=== PATIENT | male | born 1965 | race Hispanic/Latino ===

== ENCOUNTER 2019-10-20 19:17 | Observation (INO) | payer OTHER ==
[2019-10-20] MEDS ORDERED: ALPRAZOLAM 0.25 MG TABLET PO PRN (20:14)
[2019-10-20] MEDS ORDERED: MORPHINE 4 MG/ML SYR IV PRN (20:14)
[2019-10-20] MEDS ORDERED: ACETAMINOPHEN 500 MG TAB PO PRN (20:14)
[2019-10-20 20:26] VITALS: BMI 28.8
[2019-10-20] MEDS ORDERED: METOPROLOL TAR 50 MG TAB PO SCH (21:00)
[2019-10-21 00:29] VITALS: O2SAT 100
[2019-10-21 04:22] LABS: Troponin I 0.05 ng/mL (0.0-0.045)
--- NOTE | 2019-10-21 06:57 | P.HP ---
Certification for Inpatient Patient admitted to: Observation With expected LOS: <2 Midnights Patient will require the following post-hospital care: None Practitioner: I am a practitioner with admitting privileges, knowledge of patient current condition, hospital course, and medical plan of care. Services: Services provided to patient in accordance with Admission requirements found in Title 42 Section 412.3 of the Code of Federal Regulations Patient History Date of Service: 10/20/19 Reason for admission: Chest pain rule out acute coronary syndrome History of Present Illness: Patient is a 54-year-old gentleman who was well known to me from outside the hospital who presents with chest discomfort. Patient has been having some chest discomfort since this morning. He came to the ER for further evaluation. He has had some shortness of breath and dyspnea as well. He says this may be attributed to him doing some physical activity this morning. He had been doing some different type of exercises were incorporated pushups and other things which may have resulted and the chest discomfort. He went to [place] emergency room for further evaluation. Patient be admitted to the hospital for further evaluation. Will get Cardiology consultation and if his troponins and EKG look unremarkable and will try to get a stress test in the morning. Allergies No Known Allergies Allergy (Unverified 05/18/13 16:49) Home Medications: Atorvastatin Calcium 10 mg PO DAILY 10/20/19 - Past Medical/Surgical History Has patient received pneumonia vaccine in the past: Yes Diabetic: No -: Hyperlipidemia -: Left knee surgery - Family History Father Family History: Reviewed- Non-Contributory - Social History Smoking Status: Never smoker Alcohol use: No CD- Drugs: No Caffeine use: Yes Place of Residence: Home Review of Systems 10-point ROS is otherwise unremarkable Physical Examination - Vital Signs Temperature: 97.0 F Blood Pressure: 100/52 Pulse: 45 Respirations: 18 Pulse Ox (%): 100 - Physical Exam General: Alert, In no apparent distress, Oriented x3 HEENT: Atraumatic, PERRLA, Mucous membr. moist/pink, EOMI, Sclerae nonicteric Neck: Supple, 2+ carotid pulse no bruit, No LAD, Without JVD or thyroid abnormality Respiratory: Clear to auscultation bilaterally, Normal air movement Cardiovascular: Regular rate/rhythm, Normal S1 S2, No murmurs Gastrointestinal: Normal bowel sounds, Soft and benign, Non-distended, No tenderness Musculoskeletal: No clubbing, No swelling, No tenderness Integumentary: No rashes Neurological: Normal gait, Normal speech, Normal strength at 5/5 x4 extr, Normal tone, Sensation intact, Cranial nerves 3-12 intact, Normal affect Lymphatics: No axilla or inguinal lymphadenopathy - Studies Laboratory Data (last 24 hrs) 10/21/19 06:00: Triglycerides Cancelled, Cholesterol Cancelled, HDL Cholesterol Cancelled, Cholesterol/HDL Ratio Cancelled 10/21/19 03:33: Troponin I 0.05 H, Triglycerides 282 H, Cholesterol 195, HDL Cholesterol 47, Cholesterol/HDL Ratio 4.15 10/20/19 22:53: Troponin I 0.04 Assessment & Plan - Problems (Diagnosis) (1) Chest pain, rule out acute myocardial infarction Current Visit: Yes Status: Acute (2) Dyslipidemia Current Visit: Yes Status: Acute - Plan 1. Serial troponins and EKG 2. Cardiology consultation 3. Echocardiogram and stress test in the morning 4. Anti-platelet therapy, anti coagulation, beta-adalgisa, statin, and O2 as needed 5. IV morphine for pain 6. Nitro p.r.n. Discharge Plan: Home Plan to discharge in: 48 Hours - Advance Directives Does patient have a Living Will: No Does patient have a Durable POA for Healthcare: No - Code Status/Comfort Care Code Status Assessed: Yes Code Status: Full Code Critical Care: No Time Spent Managing PTS Care (In Minutes): 45
[2019-10-21] MEDS ORDERED: ENOXAPARIN 40 MG/0.4 ML SQ SCH (09:00)
[2019-10-21] MEDS ORDERED: ATORVASTATIN 10 MG TAB PO SCH (09:00)
[2019-10-21] MEDS ORDERED: ASPIRIN EC 81 MG TAB PO SCH (09:00)
[2019-10-21 09:25] VITALS: BP 99/55; TEMP 97.1
--- NOTE | 2019-10-21 11:31 | P.DS ---
Admission Date: 10/20/19 Discharge Date: 10/21/19 Primary Care Provider: Dr. Veloz Disposition: ROUTINE DISCHARGE Discharge Condition: GOOD Reason for Admission: Chest pain rule out acute coronary syndrome Consultations: Cardiology-Dr. Leslie Procedures: ECHO: Unremarkable. Exercise Stress test: Unremarkable. No stress-induced ischemia noted. Medical Problem list: Chest chest pain, normal exercise stress test Hyperlipidemia Suspect GERD Brief History of Present Illness: 54-year-old male with history of hyperlipidemia. Patient presented to [facility] due to chest pain. Patient was transferred to the hospital to complete cardiac workup. Hospital Course: Patient presented with chest pain. Patient originally seen at [facility]. Patient was transferred to the hospital to complete cardiac workup. Patient was seen and evaluated by Cardiology. Echocardiogram and exercise stress test performed. Both unremarkable as per Cardiology. No further workup needed at this time. Patient stable. Patient may continue with aspirin 81 mg daily. Recommend follow up with cardiology in 1-2 weeks if symptoms persist. Patient may have underlying reflux. Will recommend to start Protonix 40 mg daily. Patient may benefit with GI evaluation as an outpatient to further evaluate. Recommend follow up with his PCP in 1 week to follow up this hospitalization. Patient with hyperlipidemia. Patient takes a statin medication. Triglycerides slightly elevated. At discharge patient will continue with Lipitor 10 mg daily. Will recommend to add fish oil 1 g twice daily. Recommend to recheck fasting lipid panel in 4-6 weeks to monitor his progress. Vital Signs/Physical Exam: Temp Pulse Resp BP Pulse Ox 97.1 F 53 15 99/55 L 100 10/21/19 08:00 10/21/19 08:00 10/21/19 08:00 10/21/19 08:00 10/21/19 08:00 General: Alert, In no apparent distress, Oriented x3, Cooperative HEENT: Atraumatic Neck: Supple Respiratory: Clear to auscultation bilaterally, Normal air movement Cardiovascular: Normal pulses, Regular rate/rhythm Gastrointestinal: Normal bowel sounds, Soft and benign, Non-distended, No tenderness, No masses, No rebound, No guarding Musculoskeletal: No erythema, No tenderness, No warmth Integumentary: No tenderness/swelling, No erythema, No warmth, No cyanosis Neurological: Normal speech, Normal strength at 5/5 x4 extr, Normal tone, Normal affect Laboratory Data at Discharge: Troponin I 0.05 ng/mL (0.0-0.045) H 10/21/19 03:33 Triglycerides Cancelled 10/21/19 06:00 Cholesterol Cancelled 10/21/19 06:00 HDL Cholesterol Cancelled 10/21/19 06:00 Cholesterol/HDL Ratio Cancelled 10/21/19 06:00 Home Medications: Atorvastatin Calcium 10 mg PO DAILY 10/20/19 Docosahexanoic AC/Epa [Fish Oil 1,000 MG CAP] 1 cap PO BID #60 cap 10/21/19 Pantoprazole [Protonix Tab] 40 mg PO DAILY #30 tab 10/21/19 New Medications: Docosahexanoic AC/Epa [Fish Oil 1,000 MG CAP] 1 cap PO BID #60 cap Pantoprazole [Protonix Tab] 40 mg PO DAILY #30 tab Patient Discharge Instructions: 1. Recommend follow up with PCP in 1 week to follow up this hospitalization. 2. Patient presented with chest pain. Patient originally seen at [facility]. Patient was transferred to the hospital to complete cardiac workup. Patient was seen and evaluated by Cardiology. Echocardiogram and exercise stress test performed. Both unremarkable as per Cardiology. No further workup needed at this time. Patient stable. Patient may continue with aspirin 81 mg daily. Recommend follow up with cardiology in 1-2 weeks if symptoms persist. Patient may have underlying reflux. Will recommend to start Protonix 40 mg daily. Patient may benefit with GI evaluation as an outpatient to further evaluate. Recommend follow up with his PCP in 1 week to follow up this hospitalization. 3. Patient with hyperlipidemia. Patient takes a statin medication. Triglycerides slightly elevated. At discharge patient will continue with Lipitor 10 mg daily. Will recommend to add fish oil 1 g twice daily. Recommend to recheck fasting lipid panel in 4-6 weeks to monitor his progress. Diet: AHA Activity: Fall precautions Time spent managing pt's care (in minutes): 55
--- NOTE | 2019-10-21 12:21 | TREADMILL ---
70% H.R.: 117 85% H.R.: 142 90% H.R.: 150 100% H.R.: 167 DX: CHEST PAIN Date of Study: 10/21/2019 Ht: 5' 7 " Wt: 184 lb 6.4 oz Consulting Physician: SUYAPA MEDICATIONS: TYLENOL, XANAX, LIPITOR, ASPIRIN, LOVENOX HISTORY: 54 YEAR OLD MALE WITH HISTORY OF HIGH CHOLESTEROL AND ATYPICAL CHEST PAIN. PHYSICIAL EXAMINATION: RESTING B.P.: 111/77 RESTING H.R.: 64 RESTING EKG: NORMAL PROTOCOL: NEY ROUTINE EXERCISE TIME: 7:26 MAXIMUM HEART RATE: 150 87 % OF PREDICTED B.P. AT PEAK STRESS: 153/86 H.R. AT 1 MINUTE POST EXERCISE: 141 IMPRESSION: NEGATIVE EXERCISE TOLERANCE TEST. NORMAL BLOOD PRESSURE REPORTED. NO ARRHYTHMIAS. NO CHEST PAIN.
--- NOTE | 2019-10-21 18:05 | CON ---
Date of Consultation: 10/21/[address] Ewing's service on 10/20/2019. I saw the patient on 10/21/2019. Reason For Consultation: Chest pain. History Of Present Illness: Mr. Meraz is a 54-year-old [place] male without any significant past cardiac history. He does have a history of dyslipidemia, for which he takes Lipitor. He appare ntly was helping his son drive yesterday when he developed a right-sided chest pain that was increasi ng with inspiration consistent more with pleurisy. Denied any nausea, vomiting, diaphoresis, PND, or thopnea, pedal edema, palpitations, or syncope. Denied any fever or chills or cough. By the time I saw him, he has already had an echocardiogram, which was perfectly normal. A stress test, which was done was also normal. Past Medical History: As stated above. Allergies: NONE. Review of Systems: Negative. Social History: Negative. Family History: Positive for heart disease. Physical Examination: Vital Signs: Stable. He was afebrile. Chest: Clear. Cardiac: Reveals regular rhythm and rate. No murmurs, gallops, or rubs. Abdomen: Benign. Extremities: Revealed no clubbing, cyanosis, or edema. Diagnostic Data: Showed a troponin of 0.05 x2. The rest of it was normal. EKG was normal. Chest x -ray was normal. Impression And Plan: Chest pain consistent with pleurisy. Negative stress test, negative echocardio gram. Troponin is not consistent with acute coronary syndrome. The patient does have risk factors f or heart disease including family history and dyslipidemia. He is to continue Lipitor. I suggested a baby aspirin and he can take nonsteroidal anti-inflammatory agent for his pleurisy. If his symptom s persist, he will come to see me in the office as an outpatient, but for now, he can go home. Case was discussed with Dr. De La Rosa. GAELN/MUKUND Voice ID: [id number] Report ID: [id number]
--- NOTE | 2019-10-22 08:37 | ECHO ---
HEIGHT: 5 ft 7 in WEIGHT: 184 lb 6.4 oz DATE OF STUDY: 10/21/[address]: Tootie Ewing MD 2-DIMENSIONAL: YES M.MODE: YES DOPPLER: YES COLOR FLOW: YES TDS: NO PORTABLE: NO DEFINITY: NO BUBBLE STUDY: NO DIAGNOSIS: CHEST PAIN, RULE OUT ACUTE CORONARY SYNDROME CARDIAC HISTORY: CATHERIZATION: NO SURGERY: NO PROSTHETIC VALVE: NO PACEMAKER: NO MEASUREMENTS (cm) DIASTOLIC (NORMALS) SYSTOLIC (NORMALS) IVSd 1.0 (0.6-1.2) LA Diam 3.2 (1.9-4.0) LVEF 40% LVIDd 3.4 (3.5-5.7) LVIDs 2.8 (2.0-3.5) %FS 19% LVPWd 1.1 (0.6-1.2) Ao Diam 3.2 (2.0-3.7) 2 DIMENSIONAL ASSESSMENT: RIGHT ATRIUM: NORMAL LEFT ATRIUM: NORMAL RIGHT VENTRICLE: NORMAL LEFT VENTRICLE: NORMAL TRICUSPID VALVE: NORMAL MITRAL VALVE: NORMAL PULMONIC VALVE: NORMAL AORTIC VALVE: NORMAL PERICARDIAL EFFUSION: NONE AORTIC ROOT: NORMAL LEFT VENTRICULAR WALL MOTION: NORMAL. DOPPLER/COLOR FLOW: NORMAL. COMMENTS: NORMAL 2D ECHO WITH DOPPLER. NO WALL MOTION ABNORMALITY. NO EFFUSION. TECHNOLOGIST: LOREN PATEL
== END 2019-10-21 12:10 | disposition home or self-care (01) ==
LOC: 2ND 19:17
PROVIDERS: ADMIT Family Medicine; ATTEND Hospitalist
DX: R07.9 Chest pain, unspecified (principal); E78.5 Hyperlipidemia, unspecified
CPT/HCPCS: 93017; 93306; 36415; 80061; 84484 ×2; G0379; G0378 ×3

== ENCOUNTER 2021-12-16 08:59 | Observation (INO) | payer OTHER ==
--- OUTSIDE RECORDS SUMMARY | 2021-12-16 09:21 | XMS REPORT | Continuity of Care Document ---
:1965 Author Organization [facility] t Address [address] [place] [address] [address]. [address] [place] [address] Care Team Providers Name Role Phone SP NAQVI Attending Clinician Unavailable Problems This patient has no known problems. Allergies, Adverse Reactions, Alerts This patient has no known allergies or adverse reactions. Medications This patient has no known medications. Procedures This patient has no known procedures. Encounters Start End Encounter Admission Attending Care Care Encounter Source Date/Time Date/Time Type Type Clinicians Facility Department ID 2020-09-20 2020-09-23 Outpatient [facility] [id number] [address] [place] 00:00:00 00:00:00 SP [address] 2020-08-30 2020-08-30 Outpatient [facility] [id number] [address] [place] 00:00:00 00:00:[address] Results This patient has no known results.
[2021-12-16] MEDS ORDERED: ASPIRIN 81 MG CHEWABLE TABLET ONE (09:39)
[2021-12-16 09:40] LABS: Absolute Lymphocytes (CBC) 1.3 K/uL (0.7-4.9); Hematocrit 44.4 % (39.6-49.0); Lymphocytes % 15.7 % (15.3-44.8); MCV 89.9 fL (80-100); MPV 8.3 fL (7.6-11.3); RBC Red Blood Cell Count 4.94 M/uL (4.33-5.43)
--- NOTE | 2021-12-16 10:11 | RAD REPORT ---
EXAM DESCRIPTION: RAD - Chest Single View - 12/16/2021 9:47 am CLINICAL HISTORY: CONGESTION, left-sided rib pain COMPARISON: Portable May 2013 TECHNIQUE: AP portable chest image was obtained 12/16/2021 9:47 am . FINDINGS: No acute lung parenchymal process. Interstitial pattern not clearly different from compari son. No acute failure or volume overload findings. Heart and vasculature are normal. No measurable pleural effusion and no pneumothorax. No acute bone findings seen. Rib detail is limited on portable imaging. No acute aortic findings suspected. IMPRESSION: No acute cardiopulmonary process. If there are clinical concerns for left-sided rib abnormality, dedicated rib imaging could be perform ed.
[2021-12-16 10:27] LABS: Albumin 3.8 g/dL (3.4-5.0); Bilirubin Direct 0.2 mg/dL (0-0.2); Bilirubin Total 0.6 mg/dL (0.2-1.0); Magnesium 2.6 mg/dL (1.8-2.4); Potassium 3.8 mmol/L (3.5-5.1); Protein, Total 7.1 g/dL (6.4-8.2)
[2021-12-16 10:40] LABS: Troponin High Sensitivity 160.5 pg/mL (<58.9)
--- NOTE | 2021-12-16 13:26 | EDPHYS ---
Physician Documentation [facility] Name: Meet Meraz Age: 56 yrs Sex: Male : 1965 Arrival Date: 12/16/2021 Time: 09:01 Bed 5 Private MD: ED Physician Tootie Cornell HPI: 12/16 09:25 This 56 yrs old Male presents to ER via Ambulatory with complaints of Chest ma2 Pain. 09:25 Onset: gradually, 1 day(s) ago. Associated signs and symptoms: Pertinent negatives: ma2 cough, headache, lightheadedness, shortness of breath, syncope. Severity of pain: in the emergency department the pain has resolved. Historical: - Allergies: 09:08 No Known Allergies; iw - Home Meds: 09:08 Lipitor 10 mg Oral tab 1 tab once daily [Active]; iw - PMHx: 09:08 Hypercholesterolemia; iw - PSHx: 09:08 left knee; iw - Immunization history:: Adult Immunizations. - Social history:: Smoking status: Patient denies any tobacco usage or history of. - Family history:: not pertinent. ROS: 09:25 Constitutional: Negative for fever, chills, and weight loss. ma2 09:25 All other systems are negative. Exam: 09:25 Constitutional: This is a well developed, well nourished patient who is awake, alert, ma2 and in no acute distress. ENT: Nares patent. No nasal discharge, no septal abnormalities noted. Tympanic membranes are normal and external auditory canals are clear. Oropharynx with no redness, swelling, or masses, exudates, or evidence of obstruction, uvula midline. Mucous membranes moist. Neck: Trachea midline, no thyromegaly or masses palpated, and no cervical lymphadenopathy. Supple, full range of motion without nuchal rigidity, or vertebral point tenderness. No Meningismus. Chest/axilla: Normal chest wall appearance and motion. Nontender with no deformity. No lesions are appreciated. Cardiovascular: Regular rate and rhythm with a normal S1 and S2. No gallops, murmurs, or rubs. Normal PMI, no JVD. No pulse deficits. Respiratory: Lungs have equal breath sounds bilaterally, clear to auscultation and percussion. No rales, rhonchi or wheezes noted. No increased work of breathing, no retractions or nasal flaring. Abdomen/GI: Soft, non-tender, with normal bowel sounds. No distension or tympany. No guarding or rebound. No evidence of tenderness throughout. Skin: Warm, dry with normal turgor. Normal color with no rashes, no lesions, and no evidence of cellulitis. MS/ Extremity: Pulses equal, no cyanosis. Neurovascular intact. Full, normal range of motion. Neuro: Awake and alert, GCS 15, oriented to person, place, time, and situation. Cranial nerves II-XII grossly intact. Motor strength 5/5 in all extremities. Sensory grossly intact. Cerebellar exam normal. Normal gait. Vital Signs: 09:07 BP 123 / 72; Pulse 62; Resp 16; Temp 97.7; Pulse Ox 97% on R/A; Weight 80.74 kg; Height iw 5 ft. 6 in. (167.64 cm); 09:36 BP 109 / 77; Pulse 57; Resp 16 S; Pulse Ox 99% on R/A; Pain 0/10; aa5 11:08 BP 103 / 65; Pulse 56; Resp 19 S; Pulse Ox 100% on R/A; jd3 12:23 BP 101 / 66; Pulse 64; Resp 18; Pulse Ox 99% on R/A; ld1 13:48 BP 108 / 66; Pulse 52; Resp 18; Pulse Ox 97% on R/A; ld1 15:22 BP 102 / 64; Pulse 52; Resp 18; Pulse Ox 95% on R/A; ld1 16:47 BP 102 / 69; Pulse 62; Resp 18; Pulse Ox 96% on R/A; ld1 18:47 BP 106 / 72; Pulse 63; Resp 18; Pulse Ox 97% on R/A; Pain 0/10; ld1 09:07 Body Mass Index 28.73 (80.74 kg, 167.64 cm) iw MDM: 09:15 Patient medically screened. kb 09:25 Differential diagnosis: abnormal EKG, anxiety, coronary artery disease chest wall pain, ma2 stable angina. HEART Score: History: Moderately Suspicious (1), ECG: Non specific repolarization disturbance / LBTB / PM (1), Age: > 45 and < 65 years (1), Risk Factors: > or = 3 Risk factors for atherosclerotic disease (2), Troponin: < or = 1 x Normal Limit (0). 09:27 The patient was given aspirin in the Emergency Department. 11:12 Data reviewed: vital signs, nurses notes. ED course: Patient has NSTEMI 2 high-sensitivity troponin is 162, EKG with minimal ST elevation HI, I had lengthy discussion with the patient recommended admission cardiology consult, however patient states this pain is resolved and he does not want to be admitted, after lengthy discussion he agrees to get repeat troponin, will decide if troponin trending up, however patient is adamant about not being admitted at this time. We will hold in ER at this time. 13:24 ED course: . me12/16 09:16 Order name: Basic Metabolic Panel; Complete Time: 10:55 12/16 09:16 Order name: CBC with Diff; Complete Time: 10:30 12/16 09:16 Order name: LFT's; Complete Time: 10:55 12/16 09:16 Order name: Magnesium; Complete Time: 10:55 12/16 09:16 Order name: NT PRO-BNP; Complete Time: 10:55 12/16 09:16 Order name: Troponin HS; Complete Time: 10:55 12/16 09:16 Order name: XRAY Chest (1 view); Complete Time: 10:30 12/16 09:16 Order name: EKG; Complete Time: 09:17 12/16 09:16 Order name: Cardiac monitoring; Complete Time: 09:28 12/16 11:12 Order name: Troponin High Sensitivity: Please repeat troponin at noon; Complete Time: 12:46 12/16 13:41 Order name: COVID-19 SARS RT PCR (Document "Date of Onset" if Symptomatic) ld1 12/16 16:52 Order name: Troponin High Sensitivity iw 12/16 17:39 Order name: Troponin High Sensitivity EDCT 12/16 09:16 Order name: EKG - Nurse/Tech; Complete Time: 09:28 12/16 09:16 Order name: IV Saline Lock; Complete Time: 09:34 12/16 09:16 Order name: Labs collected and sent; Complete Time: 09:34 me12/16 09:16 Order name: O2 Per Protocol; Complete Time: 09:17 12/16 09:16 Order name: O2 Sat Monitoring; Complete Time: : ma2 Administered Medications: 09:34 Drug: Aspirin Chewable Tablet 324 mg Route: PO; aa5 Disposition Summary: 12/16/21 13:25 Hospitalization Ordered Hospitalization Status: Inpatient Admission ma2 Provider: Tootie Ewing Condition: Stable ma2 Problem: new ma2 Symptoms: are unchanged ma2 Bed/Room Type: [facility] Location: [facility] ER HOLD(12/16/21 17:09) Room Assignment: ERHOLD-(12/16/21 17:09) Diagnosis - Subsequent non-ST elevation (NSTEMI) myocardial infarction ma2 Forms: - Medication Reconciliation Form ma2 - SBAR form ma2 Signatures: Dispatcher [employer] EDClaudia Leary FNP-C ALEX-Laila Corondao RN RN Mervat Youngblood RN RN Liza Hair RN RN aa5 Tootie Cornell MD MD me2 Corrections: (The following items were deleted from the chart) 16:56 13:25 ma2 17: 13:25 Telemetry/MedSurg (Inpatient) ma2 17: 16:56 [address] [facility]
--- NOTE | 2021-12-16 13:26 | ER ---
Nurse's Notes [facility] Name: Meet Meraz Age: 56 yrs Sex: Male : 1965 Arrival Date: 12/16/2021 Time: 09:01 Bed 5 Private MD: Diagnosis: Subsequent non-ST elevation (NSTEMI) myocardial infarction Presentation: 12/16 09:07 Chief complaint: Patient states: left sided rib pain that started yesterday , hurts iw morning when he breathes in or when he moves. Coronavirus screen: At this time, the client does not indicate any symptoms associated with coronavirus-19. Ebola Screen: Patient negative for fever greater than or equal to 101.5 degrees Fahrenheit, and additional compatible Ebola Virus Disease symptoms Patient denies exposure to infectious person. Patient denies travel to an Ebola-affected area in the 21 days before illness onset. No symptoms or risks identified at this time. Initial Sepsis Screen: Does the patient meet any 2 criteria? No. Patient's initial sepsis screen is negative. Does the patient have a suspected source of infection? No. Patient's initial sepsis screen is negative. Risk Assessment: Do you want to hurt yourself or someone else? Patient reports no desire to harm self or others. Onset of symptoms was December 15, 2021. 09:07 Method Of Arrival: Ambulatory iw 09:07 Acuity: DK 3 iw Historical: - Allergies: 09:08 No Known Allergies; iw - Home Meds: 09:08 Lipitor 10 mg Oral tab 1 tab once daily [Active]; iw - PMHx: 09:08 Hypercholesterolemia; iw - PSHx: 09:08 left knee; iw - Immunization history:: Adult Immunizations. - Social history:: Smoking status: Patient denies any tobacco usage or history of. - Family history:: not pertinent. Screenin:35 Abuse screen: Denies threats or abuse. Nutritional screening: No deficits noted. aa5 Tuberculosis screening: No symptoms or risk factors identified. Fall Risk None identified. Assessment: 09:10 General: Appears comfortable, Behavior is calm, cooperative. Pain: Complains of pain in aa5 left side of chest Pain does not radiate. Pain currently is 0 out of 10 on a pain scale. Quality of pain is described as discomfort Pain began 1 day ago. Is intermittent, Aggravated by taking a deep breath. Neuro: Level of Consciousness is awake, alert, obeys commands, Oriented to person, place, time, situation. Cardiovascular: Heart tones S1 S2 present Rhythm is sinus bradycardia. Respiratory: Airway is patent Respiratory effort is even, unlabored, Respiratory pattern is regular, symmetrical, Breath sounds are clear bilaterally. Denies cough. GI: Abdomen is round non-distended, Bowel sounds present X 4 quads. Abd is soft and non tender X 4 quads. : No signs and/or symptoms were reported regarding the genitourinary system. EENT: No signs and/or symptoms were reported regarding the EENT system. Derm: Skin is pink, warm \\T\\ dry. Musculoskeletal: Range of motion: intact in all extremities. 10:00 Reassessment: Patient is alert, oriented x 3, equal unlabored respirations, skin aa5 warm/dry/pink. 11:08 Reassessment: Patient appears in no apparent distress at this time. Patient and/or jd3 family updated on plan of care and expected duration. Pain level reassessed. Patient is alert, oriented x 3, equal unlabored respirations, skin warm/dry/pink. provider at bedside discussing results and plan of care. 12:23 Reassessment: Patient appears in no apparent distress at this time. Patient and/or ld1 family updated on plan of care and expected duration. Pain level reassessed. Patient is alert, oriented x 3, equal unlabored respirations, skin warm/dry/pink. Vital Signs: 09:07 BP 123 / 72; Pulse 62; Resp 16; Temp 97.7; Pulse Ox 97% on R/A; Weight 80.74 kg; Height iw 5 ft. 6 in. (167.64 cm); 09:36 BP 109 / 77; Pulse 57; Resp 16 S; Pulse Ox 99% on R/A; Pain 0/10; aa5 11:08 BP 103 / 65; Pulse 56; Resp 19 S; Pulse Ox 100% on R/A; jd3 12:23 BP 101 / 66; Pulse 64; Resp 18; Pulse Ox 99% on R/A; ld1 13:48 BP 108 / 66; Pulse 52; Resp 18; Pulse Ox 97% on R/A; ld1 15:22 BP 102 / 64; Pulse 52; Resp 18; Pulse Ox 95% on R/A; ld1 16:47 BP 102 / 69; Pulse 62; Resp 18; Pulse Ox 96% on R/A; ld1 18:47 BP 106 / 72; Pulse 63; Resp 18; Pulse Ox 97% on R/A; Pain 0/10; ld1 09:07 Body Mass Index 28.73 (80.74 kg, 167.64 cm) iw ED Course: 09:01 Patient arrived in ED. iw 09:08 Triage completed. iw 09:09 Arm band placed on. iw 09:10 Patient maintains SpO2 saturation greater than 95% on room air. aa5 09:15 Tootie Cornell MD is Attending Physician. ma2 09:15 Claudia Boudreaux FNP-C is [facility]. kb 09:16 Adelfo Sanchez RN is Primary Nurse. jd3 09:27 EKG done, by ED staff, reviewed by Tootie Cornell MD. mb7 09:28 Bed in low position. Call light in reach. Side rails up X 1. Door closed. Noise mb7 minimized. Warm blanket given. 09:28 clinical research monitor on. mb7 09:28 Initial lab(s) drawn, by dc, sent to lab. Inserted saline lock: 20 gauge in right aa5 antecubital area, using aseptic technique. Blood collected. 09:34 Primary Nurse role handed off by Adelfo Sanchez RN aa5 09:34 Liza Hair, CÉSAR is Primary Nurse. aa5 09:49 XRAY Chest (1 view) In Process Unspecified. EDMS 12:00 Report given to CÉSAR West and CÉSAR West. aa5 13:25 Tootie Ewing MD is Hospitalizing Provider. ma2 14:19 COVID-19 SARS RT PCR (Document "Date of Onset" if Symptomatic) Sent. ld1 Administered Medications: 09:34 Drug: Aspirin Chewable Tablet 324 mg Route: PO; aa5 Medication: 11:09 VIS not applicable for this client. jd3 Outcome: 13:25 Decision to Hospitalize by Provider. ma2 18:47 Patient left the ED. iw Signatures: Dispatcher [employer] EDMS Claudia Boudreaux FNP-C FNP-Mervat Yousif RN RN Liza Hair RN RN aa5 Adelfo Sanchez RN RN jd3 Tootie Cornell MD MD ma2 Jenna Meyer RN RN ld1 Kayla Reina mb7 Corrections: (The following items were deleted from the chart) 09:49 09:10 Pain: Complains of pain in left side of chest Pain does not radiate. Pain aa5 currently is 0 out of 10 on a pain scale. Quality of pain is described as discomfort Pain began Is intermittent, Aggravated by taking a deep breath aa5
[2021-12-16] MEDS ORDERED: ACETAMINOPHEN 500 MG TAB PO PRN (14:26)
[2021-12-16] MEDS ORDERED: ENOXAPARIN 40 MG/0.4 ML SQ SCH (15:00)
--- NOTE | 2021-12-16 16:55 | P.SSS ---
Patient History Date of Service: 01/04/22 Reason for admission: CP r/o ACS History of Present Illness: Patient is a 56-year-old gentleman who came to the hospital with chest pain. Patient is well known to me from prior admission. Patient was having shortness of breath. Patient came into the emergency room for evaluation. Patient's initial troponins were negative. Patient will be admitted for further evaluation. Allergies No Known Allergies Allergy (Unverified 05/18/13 16:49) Home Medications: Atorvastatin Calcium 10 mg PO DAILY 10/20/19 Docosahexanoic AC/Epa [Fish Oil 1,000 MG*] 1 cap PO BID #60 cap 10/21/19 Pantoprazole [Protonix Tab*] 40 mg PO DAILY #30 tab 10/21/19 Aspirin [Aspirin EC 81 MG] 162 mg PO DAILY #60 tablet. 12/16/21 - Past Medical/Surgical History Diabetic: No -: Hyperlipidemia -: Left knee surgery - Family History Family History: Reviewed- Non-Contributory - Social History Smoking Status: Never smoker Alcohol use: No CD- Drugs: No Caffeine use: Yes Review of Systems 10-point ROS is otherwise unremarkable Physical Examination - Vital Signs Temperature: 98 F Blood Pressure: 140/80 Pulse: 80 Respirations: 18 Pulse Ox (%): 95 - Physical Exam General: Alert, In no apparent distress, Oriented x3 HEENT: Atraumatic, PERRLA, Mucous membr. moist/pink, EOMI, Sclerae nonicteric Neck: Supple, 2+ carotid pulse no bruit, No LAD, Without JVD or thyroid abnormality Respiratory: Clear to auscultation bilaterally, Normal air movement Cardiovascular: Regular rate/rhythm, Normal S1 S2 Gastrointestinal: Normal bowel sounds, No tenderness Musculoskeletal: No tenderness Integumentary: No rashes Neurological: Normal gait, Normal speech, Normal strength at 5/5 x4 extr, Normal tone, Normal affect Lymphatics: No axilla or inguinal lymphadenopathy - Studies Laboratory Data (last 24 hrs) 12/16/21 09:26: WBC 8.5, Hgb 15.2, Hct 44.4, Plt Count 261 12/16/21 09:26: Sodium 138, Potassium 3.8, BUN 17, Creatinine 1.11, Glucose 100, Magnesium 2.6 H, Total Bilirubin 0.6, AST 19, ALT 34, Alkaline Phosphatase 77 Treatment Summary: Patient's troponins are negative. Patient is stable for discharge home. Patient will need outpatient follow-up with Cardiology in 1-2 weeks. - Disposition Disposition: ROUTINE DISCHARGE Condition: GOOD Diet: AHA Activity: Fall precautions Critical Care: No Time Spent Managing Pts Care (In Minutes): 45
[2021-12-16 19:07] VITALS: O2SAT 97
[2021-12-16] MEDS ORDERED: ATORVASTATIN 80 MG TAB PO SCH (21:00)
[2021-12-16] MEDS ORDERED: METOPROLOL TAR 50 MG TAB PO SCH (21:00)
[2021-12-17] MEDS ORDERED: ASPIRIN EC 81 MG TAB PO SCH (09:00)
--- NOTE | 2021-12-19 12:00 | EKG ---
Test Date: 2021-12-16 Test Time: 09:20:46 Cadd Drafter: MB MEASUREMENT RESULTS: Intervals: Rate: 53 NM: 158 QRSD: 98 QT: 454 QTc: 426 [place]: P: 43 NM: 158 QRS: 57 T: 96 INTERPRETIVE STATEMENTS: Sinus bradycardia Possible Lateral infarct, age undetermined Abnormal ECG Compared to ECG 05/18/2013 12:08:29 Myocardial infarct finding now present Sinus rhythm no longer present Left ventricular hypertrophy no longer present T-wave abnormality no longer present Electronically Signed On 12-19-21 11:52:35 CDT by Marvin Leslie
[2022-01-04 00:28] VITALS: BP 140/80; TEMP 98
== END 2021-12-16 18:48 | disposition home or self-care (01) ==
LOC: ER 08:59 → ERHOLD 14:27
PROVIDERS: ADMIT Hospitalist; ATTEND Hospitalist
DX: R07.9 Chest pain, unspecified (principal); R06.02 Shortness of breath; E78.5 Hyperlipidemia, unspecified; E78.00 Pure hypercholesterolemia, unspecified; Z79.82 Long term (current) use of aspirin; Z79.899 Other long term (current) drug therapy; Z20.822 Contact with and (suspected) exposure to COVID-19
CPT/HCPCS: 93005; 85025; 80048; 36415; 83735; 80076; 84484 ×3; 83880; 71045; 99285; U0003; G0378 ×2

== ENCOUNTER 2021-12-17 23:05 | Emergency (ER) | payer OTHER ==
--- OUTSIDE RECORDS SUMMARY | 2021-12-17 23:08 | XMS REPORT | Continuity of Care Document ---
:1965 Author Organization [facility] t Address [address] [place] [address] [address] [place] [address] Care Team Providers Name Role Phone SP [...] Facility Department ID 2020-09-20 2020-09-23 Outpatient [facility] [id number] 00:00:00 00:00:00 SP [address] 2020-08-30 2020-08-30 Outpatient [facility] [id number] 00:00:00 00:00:[address] Results This patient has no known results.
[2021-12-17 23:57] LABS: Absolute Lymphocytes (CBC) 1.9 K/uL (0.7-4.9); Hematocrit 41.2 % (39.6-49.0); Lymphocytes % 27.1 % (15.3-44.8); MPV 8.6 fL (7.6-11.3); RBC Red Blood Cell Count 4.61 M/uL (4.33-5.43)
[2021-12-18 00:21] LABS: Potassium 3.7 mmol/L (3.5-5.1)
[2021-12-18 00:28] LABS: Troponin High Sensitivity 147.7 pg/mL (<58.9)
--- NOTE | 2021-12-18 04:41 | ER ---
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 Coronavirus screen: Vaccine status: Patient reports receiving the 2nd dose of the covid vaccine. Ebola Screen: No symptoms or risks identified at this time. Initial Sepsis Screen: Does the patient meet any 2 criteria? No. Patient's initial sepsis screen is negative. Does the patient have a suspected source of infection? No. Patient's initial sepsis screen is negative. Risk Assessment: Do you want to hurt yourself or someone else? Patient reports no desire to harm self or others. Onset of symptoms. 23:43 Method Of Arrival: Ambulatory [facility] 23:43 Acuity: DK 3 sm5 Triage Assessment: 23:44 General: Appears in no apparent distress. Behavior is cooperative. Pain: Complains of sm5 pain in left arm Quality of pain is described as tingling. Neuro: No deficits noted. Level of Consciousness is awake, alert, obeys commands, Oriented to person, place, time, situation. Cardiovascular: Capillary refill < 3 seconds Patient's skin is warm and dry. Rhythm is sinus bradycardia. Respiratory: No deficits noted. Airway is patent Trachea midline Respiratory effort is even, unlabored. Historical: - Allergies: 23:44 No Known Allergies; sm5 - Home Meds: 23:44 Lipitor 10 mg Oral tab 1 tab once daily [Active]; sm5 - PMHx: 23:44 Hypercholesterolemia; sm5 - PSHx: 23:44 left knee; sm5 - Immunization history:: Client reports receiving the 2nd dose of the Covid vaccine. - Social history:: Smoking status: Patient denies any tobacco usage or history of. - Family history:: not pertinent. - Hospitalizations: : The patient was recently seen at [facility]. Screenin:45 Abuse screen: Denies threats or abuse. Denies injuries from another. Nutritional sm5 screening: No deficits noted. Tuberculosis screening: No symptoms or risk factors identified. Fall Risk None identified. Assessment: 12/18 00:00 Reassessment: see triage assessment. [facility] 01:00 Reassessment: No changes from previously documented assessment. Patient and/or family sm5 updated on plan of care and expected duration. Pain level reassessed. 02:39 Reassessment: No changes from previously documented assessment. Patient is alert, 5 oriented x 3, equal unlabored respirations, skin warm/dry/pink. 04:50 Reassessment: No changes from previously documented assessment. Patient and/or family sm5 updated on plan of care and expected duration. Pain level reassessed. Vital Signs: 12/17 23:43 BP 120 / 84; Pulse 54; Resp 17; Temp 98.4(O); Pulse Ox 99% on R/A; Weight 80.74 kg; 5 Height 5 ft. 6 in. (167.64 cm); Pain 0/10; 12/18 01:00 BP 100 / 62; Pulse 42; Resp 15; Pulse Ox 98% on R/A; 5 02:39 BP 97 / 53; Pulse 51; Resp 18; Pulse Ox 97% on R/A; sm5 04:50 BP 111 / 80; Pulse 57; Resp 18; Pulse Ox 98% on R/A; sm5 12/17 23:43 Body Mass Index 28.73 (80.74 kg, 167.64 cm) [facility] ED Course: 12/17 23:08 Patient arrived in ED. ja2 23:19 Kervin Moss MD is Attending Physician. rn 23:42 Frasnisca Tse RN is Primary Nurse. [facility] 23:44 Triage completed. [facility] 23:45 Patient has correct armband on for positive identification. Bed in low position. Call [facility] light in reach. Side rails up X2. Client placed on continuous cardiac and pulse oximetry monitoring. NIBP monitoring applied. 23:45 Arm band placed on right wrist. EKG completed in triage. Results shown to . [facility] 12/18 00:08 Inserted saline lock: 20 gauge in right antecubital area, using aseptic technique. [facility] Blood collected. 00:08 No provider procedures requiring assistance completed. [facility] 00:29 XRAY Chest (1 view) In Process Unspecified. EDMS 00:30 Notified ED physician of a critical lab result(s). troponin 147.7. 5 01:40 CT Chest For PE Angio In Process Unspecified. EDMS 04:50 IV discontinued, intact, bleeding controlled, No redness/swelling at site. Pressure 5 dressing applied. Administered Medications: No medications were administered Medication: 12/17 23:45 VIS not applicable for this client. 5 Outcome: 12/18 04:40 Discharge ordered by . rn 04:50 Discharged to home ambulatory. [facility] 04:50 Condition: stable 04:50 Discharge instructions given to patient, Instructed on discharge instructions, follow up and referral plans. Demonstrated understanding of instructions, follow-up care. 04:51 Patient left the ED. 5 Signatures: Dispatcher [employer] EDMS Kervin Moss MD MD rn Alexander, Jessica ja2 Mazur, Sarah RN RN 5
--- NOTE | 2021-12-18 04:41 | EDPHYS ---
Physician Documentation [facility] Name: Meet Meraz Age: 56 yrs Sex: Male : 1965 Arrival Date: 12/17/2021 Time: 23:08 Bed 17 Private MD: ED Physician Kervin Moss HPI: 12/18 01:14 This 56 yrs old Male presents to ER via Ambulatory with complaints of Numbness rn Of Arm, chest pain. 01:15 The patient or guardian reports chest pain that is located primarily in the left rn lateral anterior chest. Onset: 1 hour(s) ago. The pain radiates to the left arm. Associated signs and symptoms: Pertinent negatives: cough, headache, shortness of breath, syncope. The chest pain is described as. 01:16 Duration: The patient or guardian reports a single episode. Modifying factors: The rn symptoms are alleviated by nothing. the symptoms are aggravated by nothing. Severity of pain: At its worst the pain was mild in the emergency department the pain is unchanged. The patient has experienced a previous episode. Pt seen and discharged from here yesterday, was admitted for elevated troponin and chest pain, was discharged and told to return if pain continued or worsened. 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 No cough or sob. . Historical: - Allergies: 12/17 23:44 No Known Allergies; sm5 - Home Meds: 23:44 Lipitor 10 mg Oral tab 1 tab once daily [Active]; sm5 - PMHx: 23:44 Hypercholesterolemia; sm5 - PSHx: 23:44 left knee; sm5 - Immunization history:: Client reports receiving the 2nd dose of the Covid vaccine. - Social history:: Smoking status: Patient denies any tobacco usage or history of. - Family history:: not pertinent. - Hospitalizations: : The patient was recently seen at [facility]. ROS: 12/18 01:17 Constitutional: Negative for fever, chills, and weight loss, Eyes: Negative for injury, rn pain, redness, and discharge, Neck: Negative for injury, pain, and swelling, Cardiovascular: Negative for palpitations, and edema, Respiratory: Negative for shortness of breath, cough, wheezing, and pleuritic chest pain, Abdomen/GI: Negative for abdominal pain, nausea, vomiting, diarrhea, and constipation, Back: Negative for injury and pain, MS/Extremity: Negative for injury and deformity, Skin: Negative for injury, rash, and discoloration, Neuro: Negative for headache, weakness, numbness, tingling, and seizure. Exam: 01:17 Constitutional: This is a well developed, well nourished patient who is awake, alert, rn and in no acute distress. Head/Face: Normocephalic, atraumatic. Cardiovascular: Bradycardic, regular. No pulse deficits. Respiratory: No increased work of breathing, no retractions or nasal flaring. Abdomen/GI: Soft, non-tender Skin: Warm, dry MS/ Extremity: Pulses equal, no cyanosis. Neurovascular intact. Full, normal range of motion. Equal circumference. Neuro: Awake and alert, GCS 15 Vital Signs: 12/17 23:43 BP 120 / 84; Pulse 54; Resp 17; Temp 98.4(O); Pulse Ox 99% on R/A; Weight 80.74 kg; 5 Height 5 ft. 6 in. (167.64 cm); Pain 0/10; 12/18 01:00 BP 100 / 62; Pulse 42; Resp 15; Pulse Ox 98% on R/A; [facility] 02:39 BP 97 / 53; Pulse 51; Resp 18; Pulse Ox 97% on R/A; 5 04:50 BP 111 / 80; Pulse 57; Resp 18; Pulse Ox 98% on R/A; 5 12/17 23:43 Body Mass Index 28.73 (80.74 kg, 167.64 cm) [facility] MDM: 12/17 23:19 Patient medically screened. rn 12/18 04:37 Differential diagnosis: acute myocardial infarction, coronary artery disease rn costochondritis, pericarditis, pleurisy, pneumothorax, pulmonary embolus, stable angina, unstable angina. Data reviewed: vital signs, nurses notes, lab test result(s), EKG, radiologic studies, and as a result, I will admit patient. Counseling: I had a detailed discussion with the patient and/or guardian regarding: the historical points, exam findings, and any diagnostic results supporting the discharge/admit diagnosis, lab results, radiology results, the need for further work-up and treatment in the hospital. Refusal of service: The patient/guardian displays adequate decision making capability and despite a detailed discussion of alternatives, benefits, risks, and consequences refuses: Admission to the hospital for further work-up and treatment. ED course: Pt still with elevated troponin, nonspecific ECG changes with twave inversions, my recommendation to patient was re-admission for stress and possible cath, patient does not want to be admitted. Wants to go home and states will return again if worsens or does not improve. [facility] has cardiology appt Sunday in [place]. Understands risks of leaving without further evaluation or intervention. . 12/17 23:38 Order name: Basic Metabolic Panel; Complete Time: 01:14 rn 12/17 23:38 Order name: CBC with Diff; Complete Time: :14 rn 12/17 23:38 Order name: NT PRO-BNP; Complete Time: 01:14 rn 12/17 23:38 Order name: Troponin HS; Complete Time: 01:14 rn 12/17 23:38 Order name: XRAY Chest (1 view) rn 12/17 23:38 Order name: CT Chest For PE Angio rn 12/17 23:38 Order name: EKG; Complete Time: 23:39 rn 12/17 23:38 Order name: Cardiac monitoring; Complete Time: 23:42 rn 12/17 23:38 Order name: EKG - Nurse/Tech; Complete Time: 23:42 rn 12/17 23:38 Order name: IV Saline Lock; Complete Time: 23:42 rn 12/17 23:38 Order name: Labs collected and sent; Complete Time: 23:57 rn 12/17 23:38 Order name: O2 Per Protocol; Complete Time: 23:42 rn 12/17 23:38 Order name: O2 Sat Monitoring; Complete Time: 23:42 rn Administered Medications: No medications were administered Disposition Summary: 12/18/21 04:40 Discharge Ordered Location: Home rn Problem: new rn Symptoms: have improved rn Condition: Stable rn Diagnosis - Chest pain, unspecified rn - Abnormal troponin rn Followup: rn - With: Private Physician - When: 2 - 3 days - Reason: Recheck today's complaints, Re-evaluation by your physician Discharge Instructions: - Discharge Summary Sheet rn - Nonspecific Chest Pain, Adult rn - Troponin Test rn Forms: - Medication Reconciliation Form rn - Thank You Letter rn - Antibiotic learning support aide - Prescription Opioid Use rn Signatures: Dispatcher [employer] Kervin Falcon MD MD rn Mazur, Sarah, RN RN sm5
[2021-12-18 04:59] VITALS: TEMP 98.4
[2021-12-18 05:10] VITALS: BP 111/80; O2SAT 98
--- NOTE | 2021-12-19 10:27 | RAD REPORT ---
EXAM DESCRIPTION: RAD - Chest Single View - 12/18/2021 12:27 am CLINICAL HISTORY: The patient is 56 years old and is Male; CHEST PAIN TECHNIQUE: Frontal view of the chest. COMPARISON: No relevant prior studies available. FINDINGS: Lungs: Unremarkable. No consolidation. Pleural space: Unremarkable. No pneumothorax. Heart: Unremarkable. Mediastinum: Unremarkable. Bones/joints: Unremarkable. IMPRESSION: No acute findings in the chest. Electronically signed by: Thomas Lopez MD 12/18/2021 12:45 AM CDT Due to temporary technical issues with the PACS/Fluency reporting system, reports are being signed by the in house radiologist without review as a courtesy to ensure prompt reporting. The interpreting r adiologist is fully responsible for the content of the report.
--- NOTE | 2021-12-19 11:52 | EKG ---
Test Date: 2021-12-17 Test Time: 23:23:47 Shipfitter Helper: DAVID MEASUREMENT RESULTS: Intervals: Rate: 47 IL: 154 QRSD: 96 QT: 434 QTc: 384 [place]: P: 54 IL: 154 QRS: 45 T: 103 INTERPRETIVE STATEMENTS: Sinus bradycardia T wave abnormality, consider anterolateral ischemia Abnormal ECG Compared to ECG 12/16/2021 09:20:46 T-wave abnormality now present Possible ischemia now present Myocardial infarct finding no longer present Electronically Signed On 12-19-21 11:50:16 CDT by Marvin Leslie
--- NOTE | 2021-12-19 12:40 | RAD REPORT ---
EXAM DESCRIPTION: CT - Chest For Pe Angio - 12/18/2021 6:52 am CLINICAL HISTORY: Pulmonary embolism (PE) suspected, high prob COMPARISON: None Available TECHNIQUE: Multiple helical axial tomographic images were obtained of the chest following administra tion of intravenous contrast per angiographic protocol. MIP reformatted images were obtained. This exam was performed according to our departmental dose-optimization program, which includes autom ated exposure control, adjustment of the mA and/or kV according to patient size and/or use of iterati ve reconstruction technique. FINDINGS: Thyroid gland: unremarkable. Axilla: unremarkable. Pulmonary arteries: Pulmonary arteries appear patent. No evidence of pulmonary embolism. Aorta: Aorta is not well evaluated due to suboptimal enhancement. No evidence of aortic aneurysm. Mediastinum: Unremarkable. No adenopathy. Heart: Heart is normal in size. Lungs/airways: No consolidation. Airways are patent. Pleural spaces: No significant pleural effusion. No pneumothorax. Osseous: Unremarkable. Soft tissues: Unremarkable. Visualized abdomen: Unremarkable. IMPRESSION: No acute intrathoracic abnormality. Electronically signed by: Lv Perrin MD 12/18/2021 3:23 AM CDT Due to temporary technical issues with the PACS/Fluency reporting system, reports are being signed by the in house radiologist without review as a courtesy to ensure prompt reporting. The interpreting r adiologist is fully responsible for the content of the report.
== END 2021-12-18 04:51 | disposition home or self-care (01) ==
LOC: ER 23:05
DX: R07.9 Chest pain, unspecified (principal); R77.8 Other specified abnormalities of plasma proteins; E78.00 Pure hypercholesterolemia, unspecified
CPT/HCPCS: 93005; 85025; 80048; 36415; 84484; 83880; 71275; 71045; 99284; Q9967